=== PATIENT | female | born 1960 | race Caucasian/White ===

== ENCOUNTER → 2016-09-25 | Outpatient (CLI) | payer BC ==
[~2016-09-25] MED LIST: ACETAMINOPHEN PO; AMBIEN10 MG PO; BENTYL10 MG PO; VALIUM10 MG PO; XANAX2 MG PO
--- NOTE | ~2016-09-25 | MY29 ---
[facility] A Service of [facility] RADIOLOGY TEXT RESULTS PATIENT: CHARIS NGUYEN LOCATION: [facility] #: [id number] : 58 UNIT #: [id number] AGE: [address]: Mark Hannah MD SEX: F ORDER DR: [id number] [facility] [address] [place], [place] [address] [id number] O MR#: [id number] #: [id number] NAME: CHARIS NGUYEN. : 1960 SEX: F STUDY DATE/TIME: 09/25/2016 7:43 UNIT: [facility] ROOM: STUDY DESCRIPTION: MY JULIÁN SCREENING W/ CAD BILAT Attending Physician: Mark Hannah M.D. Referring Physician: Mark Hannah M.D. Ordering Physician: Mark Hannah M.D. Primary Care Physician: Mark Hannah M.D. MEDICAL IMAGING REPORT This report is preliminary unless electronic signature is present EXAM Digital screening mammogram 09/25/2016 HISTORY 56-year-old woman positive family history, grandmother age 79. Annual screen. COMPARISON None. Prior mammogram years ago. FINDINGS Digital imaging of each breast was completed utilizing screening protocol. Review includes FDA-approved CAD device. Breast parenchyma remains extremely dense. Mild parenchymal dominance projects upper hemisphere right breast. There is no breast mass or suspicious mass characteristics. I see no microcalcifications and no architectural deformity. IMPRESSION Benign mammogram. Dense breast parenchyma. Annual screening recommended. Patients over the age of 40 are entered into a reminder system with target due date for the next mammogram. A result letter will also be sent to the patient. BIRADS: 2 Benign finding Dictated by... Daniel Vera M.D. THIS IS AN ELECTRONICALLY VERIFIED REPORT Daniel Vera M.D. at 09/25/2016 10:34 AM [facility] A Service of [facility] RADIOLOGY TEXT RESULTS PATIENT: CHARIS NGUYEN [facility] #: [id number] : 58 UNIT #: [id number] AGE: [address]: Mark Hannah MD SEX: F ORDER DR: CECI/christiano TD: 09/25/2016 10:08 JOB #: [id number] MEDICAL IMAGING REPORT Page 1 of 1 COPY
== END | disposition home or self-care (01) ==
LOC: CWCC 07:16
DX: Z12.31 Encounter for screening mammogram for malignant neoplasm of breast (principal); Z80.3 Family history of malignant neoplasm of breast
CPT/HCPCS: G0202